=== PATIENT | female | born 2000 | race Caucasian/White ===

== ENCOUNTER 2018-08-29 10:03 | Inpatient (IN) | payer OTHER ==
[2018-08-29] MEDS: ELECTROLYTE-148 SOLN 1,000 ML IV SCH (22:30)
[2018-08-29] MEDS ORDERED: BUTORPHANOL TARTRATE 1 MG/ML VIAL IVPB ONE (22:44)
[2018-08-29] MEDS ORDERED: PROMETHAZINE HCL 25 MG/1 ML VIAL IVPUSH ONE (22:44)
--- NOTE | 2018-08-29 22:49 | HP ---
Past Medical History - Admission Chief Complaint: SROM History of Present Illness: 18yo @ 36+ weeks by LMP/sono here with SROM History Source: Patient Limitations to Obtaining History: No Limitations - Past Medical History [employer]: No: Alzheimer's, CVA, Dementia, Migraine, Multiple Sclerosis, Peripheral Neuropathy, Parkinson's, Seizure, Syncope, TIA, Vertigo, Other Cardiovascular: No: AFIB, Aneurysm, Aortic Insufficiency, Aortic Stenosis, CAD, CHF, Deep Vein Thrombosis, HTN, Hyperlipdemia, IN, Mitral Insufficiency, Mitral Stenosis, Murmur, Pulmonary Hypertension, Other Gastrointestinal: No: Ascites, Cancer, Constipation, Crohn's Disease, Diverticulitis, Diverticulosis, Esophageal Varices, Gastritis, GERD, GI Bleed, Hemorrhoids, Hiatal Hernia, Inflamatory Bowel Disease, Irritable Bowel Disease, Pancreatitis, Peptic Ulcer Disease, Ulcerative Colitis, Other Hepatobiliary: No: Cirrhosis, Cholelithiasis, Cholecystitis, Choledocholithiasis , Hepatitis A, Hepatitis B, Hepatitis C, Other Renal/: No: Renal Failure, Renal Inusuff, BPH, Cancer, Hematuria, Hemodialysis , Neurogenic Bladder, Renal Calculi, UTI, Other Reproductive: No: Ectopic , Endometriosis, Fibroids, PID, Polycystic Ovary Syndrome, Postmenopausal, Other ...: 1 ...Para: 0 ...Term: 0 Heme/Onc: No: Anemia, B12 Deficiency, Bleeding Disorder, Cancer, Current Chemotherapy, Current Radiation Therapy, Hemochromatosis, Hypercoaguable State, Myeloproliferative Synd, Sickle Cell Disease, Sickle Cell Trait, Thrombocytopenia, Other Infectious Disease: No: AIDS, C-Diff, Herpes Zoster, HIV, MRSA, STD's, Tuberculosis, VREF, Other Musculoskeletal: No: Bursitis, Chronic low back pain, Hemiparesis, Hemiplegia, Osteoarthritis, Paraplegia, Other Rheumatology: No: Fibromyalgia, Gout, Lupus, Rheumatoid Arthritis, Sarcoidosis, Vasculitis, Other ENT: No: Allergic Rhinitis, Sinusitis, Other Endocrine: No: Dm's Disease, Liana's Disease, Diabetes Insipidus, Diabetes Mellitus, Hyperparathyroidism, Hyperthyroidism, Hypothyroidism, Osteopenia, SIADH, Other Dermatology: No: Basal Cell, Cellulitis, Eczema, Melanoma, Psoriasis, Squamous Cell, Other - Past Surgical History Past Surgical History: Yes: None Hx Myomectomy: No Hx Transabdominal Cerclage: No - Advance Directives Advance Directives: No: Living Will, Health Care Proxy, DNR, Organ Donor, Tissue Donor, MOLST - Smoking History Have you smoked in the past 12 months: No - Alcohol/Substance Use Hx Alcohol Use: No History of Substance Use: reports: None - Social History ADL: Independent History of Recent Travel: No Home Medications - Allergies Allergies/Adverse Reactions: Allergies Allergy/AdvReac Type Severity Reaction Status Date / Time No Known Allergies Allergy Verified 08/29/18 22:35 - Home Medications Home Medications: Ambulatory Orders Vitamins (Sjr) - 1 tab PO DAILY 05/18/18 Physical Exam - Maternity Constitutional: Yes: Well Nourished, No Distress, Calm Eyes: Yes: WNL, Conjunctiva Clear, EOM Intact HENT: Yes: WNL, Atraumatic, Normocephalic Neck: Yes: WNL, Supple, Trachea Midline Cardiovascular: Yes: WNL, Regular Rate and Rhythm Breast(s): Yes: WNL - Abdominal Exam/OB Number of Fetuses: Single Presentation: Vertex Contractions: Yes Regularity: Irregular Monitor Mode: External Heart Rate Location: LUQ Accelerations: Non-Uniform Decelerations: None - Vaginal Exam/OB Vaginal Bleediing: No Speculum Exam: No Dilatation (cm): 3 Amniotic Membrane Status: Ruptured Nitrazine Test: Positive Amniotic Fluid: Yes: Clear Presentation: Vertex/Position Station: -3 Assessment/Plan 18yo @ 36wks with SROM Admit to L&D IVFs Cat 1 tracing Stadol prn Anticipate EMILIA Auguste
[2018-08-29 22:52] VITALS: BMI 31.1
[2018-08-29 22:56] LABS: BASO % 0.2 % (0-2.0); EOS % 0.9 % (0-4.5); HEMATOCRIT 34.4 % (32.4-45.2); HEMOGLOBIN 11.3 GM/dL (10.7-15.3); LYMPH % 9.8 % (8-40); MCH 26.8 pg (25.7-33.7); MCHC 32.8 g/dl (32.0-36.0); MEAN CELL VOLUME 81.8 fl (80-96); MEAN PLT VOLUME 7.6 fl (7.5-11.1); MONO % 5.4 % (3.8-10.2); NEUT % 83.7 % (42.8-82.8); PLATELET COUNT 182 K/MM3 (134-434); RDW 13.6 % (11.6-15.6)
[2018-08-29 23:07] LABS: INR 0.96 (0.83-1.09); PROTHROMBIN TIME (PATIENT) 11.3 SEC (9.7-13.0)
[2018-08-29 23:21] LABS: CALCIUM 8.7 mg/dL (8.5-10.1); CREATININE 0.5 mg/dL (0.55-1.3); POTASSIUM 3.7 mmol/L (3.5-5.1)
[2018-08-30] MEDS ORDERED: BUTORPHANOL TARTRATE 2 MG/ML VIAL ONE (02:44)
[2018-08-30] MEDS ORDERED: PROMETHAZINE HCL 25 MG/1 ML VIAL ONE (02:45)
[2018-08-30] MEDS: ELECTROLYTE-148 SOLN 1,000 ML IV SCH (06:00)
[2018-08-30] MEDS ORDERED: OXYTOCIN 20 UNITS in 0.9% NS 20 UNIT/1,000 ML INFUS.BAG IV ONE ×2 (08:54→11:57)
[2018-08-30] MEDS ORDERED: LIDOCAINE HCL 1% PRESERVATIVE FREE - 30ML VIAL ONE (08:54)
[2018-08-30] MEDS ORDERED: BENZOCAINE 20% 57 GM BOTTLE TP PRN (10:16)
[2018-08-30] MEDS ORDERED: BENZOCAINE 28 GM HEMORRHOIDAL OINTMENT TP PRN (10:16)
[2018-08-30] MEDS ORDERED: METHYLERGONOVINE MALEATE 0.2 MG/1 ML AMP IM PRN (10:16)
[2018-08-30] MEDS ORDERED: WITCH HAZEL 50% (TUCKS) 40 PAD/JAR PAD TP PRN (10:16)
[2018-08-30] MEDS ORDERED: BISACODYL 10 MG SUPP.RECT RC PRN (10:16)
--- NOTE | 2018-08-30 10:20 | PN ---
Delivery - Delivery Vaginal Delivery: Spontaneous Type of Anesthesia: Local Episiotomy/Laceration: 1st degree EBL (cc): 300 Delivery, Single - Feeding Plan Initial Plan: Elected not to breastfeed exclusively throughout hospitalization Remarks - Remarks Remarks: Normal spontaneous vaginal delivery of a live infant boy. Nose / Oropharynx suctioned @ perineum. Cord clamped and cut. Baby handed to nurse. Placenta expelled spontaneously intact. Laceration repaired with 2.0 Biosyn.
[2018-08-30] MEDS ORDERED: OXYTOCIN 20 UNITS in 0.9% NS 20 UNIT/1,000 ML INFUS.BAG IV SCH (10:30)
[2018-08-30] MEDS: IBUPROFEN 600 MG TABLET (FP) PO PRN (11:00)
[2018-08-30] MEDS: ACETAMINOPHEN 325 MG TABLET (FP) PO PRN (11:00)
[2018-08-30] MEDS: FERROUS SO4 325 MG TABLET (FP) PO SCH (21:09)
[2018-08-31] MEDS: IBUPROFEN 600 MG TABLET (FP) PO PRN ×2 (01:45→19:21)
[2018-08-31] MEDS: ACETAMINOPHEN 325 MG TABLET (FP) PO PRN ×2 (01:46→19:22)
[2018-08-31 06:56] LABS: BASO % 0.2 % (0-2.0); EOS % 1.1 % (0-4.5); HEMATOCRIT 29.2 % (32.4-45.2); HEMOGLOBIN 9.8 GM/dL (10.7-15.3); LYMPH % 15.1 % (8-40); MCH 27.3 pg (25.7-33.7); MCHC 33.6 g/dl (32.0-36.0); MEAN CELL VOLUME 81.3 fl (80-96); MEAN PLT VOLUME 7.3 fl (7.5-11.1); MONO % 5.9 % (3.8-10.2); NEUT % 77.7 % (42.8-82.8); PLATELET COUNT 160 K/MM3 (134-434); WHITE BLOOD COUNT 10.1 K/mm3 (4.0-10.0)
--- NOTE | 2018-08-31 07:41 | PN ---
Post Progress Note - Subjective Subjective: Patient is doing well, ambulating, tolerating Po, lochia decreased, passing flatus, desiring infant's circumcision Type of Delivery: Vital Signs: Vital Signs Temperature 97.9 F 08/31/18 06:00 Pulse Rate 78 08/31/18 06:00 Respiratory Rate 18 08/31/18 06:00 Blood Pressure 114/65 08/31/18 06:00 O2 Sat by Pulse Oximetry (%) Breast Exam: Yes: Soft Uterus: Yes: Fundus Firm Abdomen/GI: Yes: Abdomen soft Lochia, amount: Moderate Activity: Ambulating - Labs Labs: CBC WBC 11.0 K/mm3 (4.0-10.0) H 08/29/18 22:50 RBC 4.20 M/mm3 (3.60-5.2) 08/29/18 22:50 Hgb 11.3 GM/dL (10.7-15.3) 08/29/18 22:50 Hct 34.4 % (32.4-45.2) 08/29/18 22:50 MCV 81.8 fl (80-96) 08/29/18 22:50 MCH 26.8 pg (25.7-33.7) 08/29/18 22:50 MCHC 32.8 g/dl (32.0-36.0) 08/29/18 22:50 RDW 13.6 % (11.6-15.6) 08/29/18 22:50 Plt Count 182 K/MM3 (134-434) 08/29/18 22:50 MPV 7.6 fl (7.5-11.1) 08/29/18 22:50 Absolute Neuts (auto) 9.2 K/mm3 (1.5-8.0) H 08/29/18 22:50 Neutrophils % 83.7 % (42.8-82.8) H 08/29/18 22:50 Lymphocytes % 9.8 % (8-40) 08/29/18 22:50 Monocytes % 5.4 % (3.8-10.2) 08/29/18 22:50 Eosinophils % 0.9 % (0-4.5) 08/29/18 22:50 Basophils % 0.2 % (0-2.0) 08/29/18 22:50 Nucleated RBC % 0 % (0-0) 08/29/18 22:50 Other Findings, Remarks: PPD # 1 in stable condition and adequate recovery. Patient expressed desire for infant's circumcision -Continue PP care -Anticipate D/C tomorrow -Infant's circumcision
[2018-08-31] MEDS: FERROUS SO4 325 MG TABLET (FP) PO SCH ×2 (09:09→21:51)
[2018-08-31] MEDS: PRENATAL VITAMINS W/ FOLIC ACID TABLET (FP) PO SCH (09:09)
[2018-08-31] MEDS ORDERED: SENNOSIDES/DOCUSATE COMBO (SENNA PLUS) TABLET (UD) PO PRN (22:00)
[2018-09-01] MEDS: ACETAMINOPHEN 325 MG TABLET (FP) PO PRN ×2 (05:20→12:45)
--- NOTE | 2018-09-01 06:30 | PN ---
Post Progress Note Post Day: 2 Type of Delivery: Vital Signs: Vital Signs Temperature 98.4 F 08/31/18 22:00 Pulse Rate 94 H 08/31/18 22:00 Respiratory Rate 18 08/31/18 22:00 Blood Pressure 114/72 08/31/18 22:00 O2 Sat by Pulse Oximetry (%) Breast Exam: Yes: Soft Uterus: Yes: Fundus Firm Abdomen/GI: Yes: Abdomen soft Lochia: Yes: Rubra Lochia, amount: Small Extremities: Yes: Calves non-tender Perineum: Yes: Intact Activity: Ambulating - Labs Labs: CBC WBC 10.1 K/mm3 (4.0-10.0) H 08/31/18 06:33 RBC 3.60 M/mm3 (3.60-5.2) 08/31/18 06:33 Hgb 9.8 GM/dL (10.7-15.3) L 08/31/18 06:33 Hct 29.2 % (32.4-45.2) L D 08/31/18 06:33 MCV 81.3 fl (80-96) 08/31/18 06:33 MCH 27.3 pg (25.7-33.7) 08/31/18 06:33 MCHC 33.6 g/dl (32.0-36.0) 08/31/18 06:33 RDW 14.0 % (11.6-15.6) 08/31/18 06:33 Plt Count 160 K/MM3 (134-434) 08/31/18 06:33 MPV 7.3 fl (7.5-11.1) L 08/31/18 06:33 Absolute Neuts (auto) 7.8 K/mm3 (1.5-8.0) 08/31/18 06:33 Neutrophils % 77.7 % (42.8-82.8) 08/31/18 06:33 Lymphocytes % 15.1 % (8-40) D 08/31/18 06:33 Monocytes % 5.9 % (3.8-10.2) 08/31/18 06:33 Eosinophils % 1.1 % (0-4.5) 08/31/18 06:33 Basophils % 0.2 % (0-2.0) 08/31/18 06:33 Nucleated RBC % 0 % (0-0) 08/31/18 06:33 Assessment/Plan doing well dc home fu in clinic
[2018-09-01] MEDS: PRENATAL VITAMINS W/ FOLIC ACID TABLET (FP) PO SCH (09:39)
[2018-09-01] MEDS: FERROUS SO4 325 MG TABLET (FP) PO SCH (09:39)
[2018-09-01 10:16] VITALS: BP 117/77; PULSE 87; TEMP 98.1
[2018-09-01] MEDS: IBUPROFEN 600 MG TABLET (FP) PO PRN (12:46)
== END 2018-09-01 13:50 | disposition home or self-care (01) | DRG 560 ==
LOC: JLDR 10:03 → J3W 08-30 11:53
PROVIDERS: ADMIT Obstetrics & Gynecology; ATTEND Obstetrics & Gynecology
PROC: 10E0XZZ Delivery of Products of Conception, External Approach (ICD-10-PCS; principal; 2018-08-30)
PROC: 0HQ9XZZ Repair Perineum Skin, External Approach (ICD-10-PCS; 2018-08-30)
DX: O60.23X0 Term delivery with preterm labor, third trimester, not applicable or unspecified (principal); O70.0 First degree perineal laceration during delivery; Z3A.36 36 weeks gestation of pregnancy; Z37.0 Single live birth
CPT/HCPCS: 36415; 59409; 80048; 85025; 85610; 85730; 86593; 86850; 86900; 86901

== ENCOUNTER 2021-03-05 10:57 | Emergency (ER) | payer OTHER ==
[2021-03-05 11:06] VITALS: BP 111/50; PULSE 75; TEMP 98.4; BMI 30.2
[2021-03-05] MEDS ORDERED: METHOCARBAMOL 500 MG TABLET PO ONE (12:35)
[2021-03-05] MEDS ORDERED: IBUPROFEN 600 MG TABLET (FP) PO ONE (12:35)
[2021-03-05] MEDS ORDERED: ACETAMINOPHEN 500 MG TABLET (FP) PO ONE (12:36)
[2021-03-05] MEDS ORDERED: ACETAMINOPHEN 500 MG TABLET (FP) ONE (12:51)
[2021-03-05] MEDS ORDERED: ACETAMINOPHEN 325 MG TABLET (FP) ONE (13:11)
[2021-03-05 13:44] LABS: EPI CELLS 10 /uL (0-25.1); HYALINE CASTS 2 /uL (0-3.1); URINE APPEARANCE CLEAR; URINE BACTERIA 67 /uL (0-1359); URINE BILIRUBIN 1+ (NEGATIVE); URINE COLOR DK YELLOW; URINE GLUCOSE (UA) NEGATIVE (NEGATIVE); URINE KETONE TRACE (NEGATIVE); URINE LEUK ESTERASE 1+ (NEGATIVE); URINE NITRITE NEGATIVE (NEGATIVE); URINE PROTEIN NEGATIVE (NEGATIVE); URINE RBC 27 /uL (0-23.9); URINE WBC 15 /uL (0-25.8)
== END 2021-03-05 13:32 | disposition home or self-care (01) ==
LOC: JER 10:57
DX: M62.838 Other muscle spasm (principal); R10.2 Pelvic and perineal pain
CPT/HCPCS: 36415; 81003; 84703; 87086; 87491; 87591; 99284-25

== ENCOUNTER 2021-03-15 01:53 | Emergency (ER) | payer OTHER ==
[2021-03-15 03:05] VITALS: TEMP 98.3; BMI 28.9
[2021-03-15] MEDS ORDERED: ONDANSETRON 4 MG TABLET PO ONE (03:17)
[2021-03-15] MEDS ORDERED: FAMOTIDINE 20 MG/50 ML IVPB 20 MG/50 ML MG IVPB ONE ×2 (03:17→03:22)
[2021-03-15] MEDS ORDERED: SODIUM CHLORIDE 0.9% 500 ML INFUS.BAG IV ONE (03:17)
[2021-03-15] MEDS ORDERED: MAG HYDROX/AL HYDROX/SIMETH -MYLANTA- ORAL SUSPENSION PO ONE (03:17)
[2021-03-15] MEDS ORDERED: ACETAMINOPHEN 500 MG TABLET (FP) PO ONE (03:17)
[2021-03-15] MEDS ORDERED: ACETAMINOPHEN 325 MG TABLET (FP) ONE (03:21)
[2021-03-15] MEDS ORDERED: ONDANSETRON *ODT* 4 MG TABLET ONE (03:22)
[2021-03-15] MEDS ORDERED: MAG HYDROX/AL HYDROX/SIMETH 30 ML UNIT-DOSE CUP ONE (03:22)
[2021-03-15 04:04] LABS: PH,URINE 5.5 (5.0-8.0); URINE APPEARANCE CLOUDY; URINE BILIRUBIN NEGATIVE (NEGATIVE); URINE COLOR YELLOW; URINE GLUCOSE (UA) NEGATIVE (NEGATIVE); URINE KETONE TRACE (NEGATIVE); URINE LEUK ESTERASE TRACE (NEGATIVE); URINE NITRITE NEGATIVE (NEGATIVE); URINE PROTEIN NEGATIVE (NEGATIVE)
[2021-03-15 04:05] LABS: BASO % 0.8 % (0-2.0); EOS % 1.3 % (0-4.5); HEMATOCRIT 39.1 % (32.4-45.2); HEMOGLOBIN 12.8 GM/dL (10.7-15.3); LYMPH % 28.9 % (8-40); MCH 25.9 pg (25.7-33.7); MCHC 32.8 g/dl (32.0-36.0); MEAN CELL VOLUME 78.8 fl (80-96); MEAN PLT VOLUME 8.2 fl (7.5-11.1); MONO % 3.9 % (3.8-10.2); NEUT % 65.1 % (42.8-82.8); PLATELET COUNT 50 10^3/uL (134-434); RBC 4.96 M/mm3 (3.60-5.2); RDW 13.5 % (11.6-15.6); WHITE BLOOD COUNT 4.3 K/mm3 (4.0-10.0)
[2021-03-15 04:25] LABS: CALCIUM 9.6 mg/dL (8.5-10.1)
[2021-03-15 04:26] LABS: ALBUMIN 3.6 g/dl (3.4-5.0); BLOOD UREA NITROGEN 10.2 mg/dL (7-18)
[2021-03-15 04:29] LABS: CREATININE 0.6 mg/dL (0.55-1.3)
[2021-03-15 04:30] LABS: BILIRUBIN,TOTAL 0.4 mg/dL (0.2-1); TOT PROT 8.2 g/dl (6.4-8.2)
[2021-03-15 05:48] VITALS: BP 119/52; PULSE 67
== END 2021-03-15 05:48 | disposition home or self-care (01) ==
LOC: JER 01:53
PROC: 3E033GC Introduction of Other Therapeutic Substance into Peripheral Vein, Percutaneous Approach (ICD-10-PCS; principal; 2021-03-15)
DX: R10.13 Epigastric pain (principal); M54.50 Low back pain, unspecified
CPT/HCPCS: 36415; 80053; 81003; 83690; 84703; 85025; 87086; 99284-25

== ENCOUNTER 2022-03-09 06:12 | Emergency (ER) | payer OTHER ==
[2022-03-09 06:37] VITALS: BP 103/63; PULSE 110; RESP 20; TEMP 98.2; BMI 30.4
[2022-03-09] MEDS ORDERED: ALBUTEROL SO4 2.5/IPRATROPIUM 0.5 INH SOL 3 ML VIAL.NEB. NEB ONE ×2 (07:52→08:25)
== END 2022-03-09 10:13 | disposition home or self-care (01) ==
LOC: JER 06:12
PROC: 3E0F7GC Introduction of Other Therapeutic Substance into Respiratory Tract, Via Natural or Artificial Opening (ICD-10-PCS; principal; 2022-03-09)
DX: J09.X2 Influenza due to identified novel influenza A virus with other respiratory manifestations (principal); R05.1 Acute cough
CPT/HCPCS: 0241U-QW; 71046-TC-FY; 99284-25

== ENCOUNTER 2023-07-02 18:58 | Emergency (ER) | payer OTHER ==
[2023-07-02 19:10] VITALS: BP 110/64; PULSE 112; RESP 20; TEMP 99.3; BMI 31.2
[2023-07-02] MEDS ORDERED: ONDANSETRON 4 MG/2 ML VIAL ONE (20:32)
[2023-07-02] MEDS: SODIUM CHLORIDE 1,000 ML IV STA (20:36)
[2023-07-02] MEDS: ONDANSETRON 4 MG/2 ML VIAL IVPUSH ONE (20:36)
[2023-07-02 20:49] LABS: BASO % 0.2 % (0-2.0); EOS % 0.2 % (0-4.5); HEMATOCRIT 42.3 % (32.4-45.2); HEMOGLOBIN 14.2 GM/dL (10.7-15.3); LYMPH % 4.1 % (8-40); MCH 26.6 pg (25.7-33.7); MCHC 33.6 g/dl (32.0-36.0); MEAN CELL VOLUME 79.2 fl (80-96); MEAN PLT VOLUME 7.6 fl (7.5-11.1); MONO % 2.1 % (3.8-10.2); NEUT % 93.4 % (42.8-82.8); PLATELET COUNT 226 10^3/uL (134-434); RBC 5.34 M/mm3 (3.60-5.2); RDW 14.5 % (11.6-15.6); WHITE BLOOD COUNT 11.8 K/mm3 (4.0-10.0)
[2023-07-02 20:51] LABS: PH,URINE 5.5 (5.0-8.0); URINE APPEARANCE CLEAR; URINE BILIRUBIN NEGATIVE (NEGATIVE); URINE COLOR DK YELLOW; URINE GLUCOSE (UA) NEGATIVE (NEGATIVE); URINE KETONE TRACE (NEGATIVE); URINE LEUK ESTERASE NEGATIVE (NEGATIVE); URINE NITRITE NEGATIVE (NEGATIVE); URINE PROTEIN TRACE (NEGATIVE); URINE UROBILINOGEN 0.2 mg/dL (0.2-1.0)
[2023-07-02 20:54] LABS: HCG,QUALITATIVE URINE Negative
[2023-07-02 21:14] LABS: ALBUMIN 4.2 g/dl (3.4-5.0); BLOOD UREA NITROGEN 13.4 mg/dL (7-18); CALCIUM 9.3 mg/dL (8.5-10.1)
[2023-07-02 21:18] LABS: CREATININE 0.8 mg/dL (0.55-1.3)
[2023-07-02 21:19] LABS: BILIRUBIN,TOTAL 0.6 mg/dL (0.2-1); TOT PROT 7.9 g/dl (6.4-8.2)
[2023-07-02 21:46] LABS: ANISOCYTOSIS 1+; MACROCYTOSIS 0
== END 2023-07-02 22:07 | disposition home or self-care (01) ==
LOC: JERFT 18:58 → JER 18:58 → JERFT 22:07
PROC: 3E033GC Introduction of Other Therapeutic Substance into Peripheral Vein, Percutaneous Approach (ICD-10-PCS; principal; 2023-07-02)
PROC: 3E0337Z Introduction of Electrolytic and Water Balance Substance into Peripheral Vein, Percutaneous Approach (ICD-10-PCS; 2023-07-02)
DX: R19.7 Diarrhea, unspecified (principal); R11.2 Nausea with vomiting, unspecified; J02.9 Acute pharyngitis, unspecified; R05.9 Cough, unspecified; R52 Pain, unspecified; Z20.822 Contact with and (suspected) exposure to COVID-19
CPT/HCPCS: 0241U-QW; 36415; 80053; 81003; 83690; 84703; 85025; 87086; 99283-25

== ENCOUNTER 2023-09-26 19:20 | Emergency (ER) | payer OTHER ==
[2023-09-26 19:40] VITALS: RESP 18; TEMP 98.5; BMI 30.7
[2023-09-26] MEDS ORDERED: RABIES IMMUNE GLOBULIN 300 UNITS/1 ML VIAL ONE (20:06)
[2023-09-26] MEDS ORDERED: RABIES VACCINE (PCEC)/PF 2.5 UNIT/VIAL IM ONE (20:07)
[2023-09-26] MEDS: RABIES VACCINE (PCEC)/PF 2.5 UNIT/VIAL IM ONE (20:31)
[2023-09-26] MEDS: RABIES IMMUNE GLOBULIN 300 UNITS/1 ML VIAL IM ONE (20:31)
[2023-09-26 20:51] VITALS: BP 110/62; PULSE 76
== END 2023-09-26 20:51 | disposition home or self-care (01) ==
LOC: JERFT 19:20
PROC: 3E0234Z Introduction of Serum, Toxoid and Vaccine into Muscle, Percutaneous Approach (ICD-10-PCS; principal; 2023-09-26)
DX: S61.250A Open bite of right index finger without damage to nail, initial encounter (principal); W55.01XA Bitten by cat, initial encounter; Z23 Encounter for immunization
CPT/HCPCS: 90375; 90675; 99284-25

== ENCOUNTER 2023-09-29 18:27 | Emergency (ER) | payer OTHER ==
[2023-09-29 18:55] VITALS: BP 108/48; PULSE 70; RESP 18; TEMP 98.5; BMI 30.7
[2023-09-29] MEDS ORDERED: RABIES VACCINE (PCEC)/PF 2.5 UNIT/VIAL IM ONE (19:38)
[2023-09-29] MEDS: RABIES VACCINE (PCEC)/PF 2.5 UNIT/VIAL IM ONE (19:43)
== END 2023-09-29 20:09 | disposition home or self-care (01) ==
LOC: JERFT 18:27
PROC: 3E0234Z Introduction of Serum, Toxoid and Vaccine into Muscle, Percutaneous Approach (ICD-10-PCS; principal; 2023-09-29)
DX: Z29.14 Encounter for prophylactic rabies immune globulin (principal)
CPT/HCPCS: 90471; 90675; 99281-25

== ENCOUNTER 2023-10-03 13:03 | Emergency (ER) | payer OTHER ==
[2023-10-03 13:08] VITALS: BP 103/59; PULSE 86; RESP 20; TEMP 98; BMI 30.7
[2023-10-03] MEDS ORDERED: RABIES VACCINE (PCEC)/PF 2.5 UNIT/VIAL IM ONE (13:35)
[2023-10-03] MEDS: RABIES VACCINE (PCEC)/PF 2.5 UNIT/VIAL IM ONE (13:42)
== END 2023-10-03 14:16 | disposition home or self-care (01) ==
LOC: JERFT 13:03
PROC: 3E0234Z Introduction of Serum, Toxoid and Vaccine into Muscle, Percutaneous Approach (ICD-10-PCS; principal; 2023-10-03)
DX: Z29.14 Encounter for prophylactic rabies immune globulin (principal)
CPT/HCPCS: 90675; 99281-25

== ENCOUNTER 2023-10-10 14:36 | Emergency (ER) | payer OTHER ==
[2023-10-10 14:42] VITALS: BP 92/56; PULSE 80; RESP 20; TEMP 98.9; BMI 30.7
[2023-10-10] MEDS: RABIES VACCINE (PCEC)/PF 2.5 UNIT/VIAL IM ONE (14:45)
[2023-10-10] MEDS ORDERED: RABIES VACCINE (PCEC)/PF 2.5 UNIT/VIAL IM ONE (14:46)
[2023-10-10] MEDS ORDERED: EPINEPHrine/PF 1 MG/1 ML (1:1,000) AMPULE ONE (15:55)
== END 2023-10-10 15:16 | disposition home or self-care (01) ==
LOC: JERFT 14:36
DX: Z29.14 Encounter for prophylactic rabies immune globulin (principal)
CPT/HCPCS: 90675; 99281-25

== ENCOUNTER 2023-10-10 15:57 | Emergency (ER) | payer OTHER ==
[2023-10-10] MEDS ORDERED: methylPREDNISolone NA SUCC 125 MG/2 ML VIAL ONE (16:27)
[2023-10-10] MEDS ORDERED: FAMOTIDINE 20 MG/50 ML IVPB 20 MG/50 ML MG IVPB ONE (16:28)
[2023-10-10] MEDS: methylPREDNISolone NA SUCC 125 MG/2 ML VIAL IVPUSH ONE (16:34)
[2023-10-10 16:37] VITALS: RESP 18; TEMP 98.2; BMI 30.7
[2023-10-10] MEDS: EPINEPHrine 1:1,000 0.3 MG/0.3 ML SYR IM ONE (16:46)
[2023-10-10] MEDS: FAMOTIDINE 20 MG/50 ML IVPB 20 MG/50 ML MG IVPB ONE (17:00)
[2023-10-10 19:30] VITALS: BP 95/52; PULSE 79
== END 2023-10-10 19:56 | disposition home or self-care (01) ==
LOC: JER 15:57
PROC: 3E033GC Introduction of Other Therapeutic Substance into Peripheral Vein, Percutaneous Approach (ICD-10-PCS; principal; 2023-10-10)
PROC: 3E033GC Introduction of Other Therapeutic Substance into Peripheral Vein, Percutaneous Approach (ICD-10-PCS; 2023-10-10)
PROC: 3E023GC Introduction of Other Therapeutic Substance into Muscle, Percutaneous Approach (ICD-10-PCS; 2023-10-10)
PROC: 3E02305 Introduction of Other Antineoplastic into Muscle, Percutaneous Approach (ICD-10-PCS; 2023-10-10)
DX: L29.9 Pruritus, unspecified (principal); R21 Rash and other nonspecific skin eruption; T50.Z95A Adverse effect of other vaccines and biological substances, initial encounter
CPT/HCPCS: 99284-25; J0171